=== PATIENT | female | born 1965 | race Caucasian/White ===

== ENCOUNTER 2025-03-23 08:15 | Day surgery (SDC) | payer OTHER ==
[2025-03-18 14:09] VITALS: BMI 42.0
[2025-03-23 08:31] VITALS: RESP 18
[2025-03-23] MEDS ORDERED: PROPOFOL 160 ML ONE (09:45)
[2025-03-23 10:18] VITALS: TEMP 97
[2025-03-23 10:39] VITALS: BP 130/54; PULSE 66
== END 2025-03-23 10:37 | disposition home or self-care (01) ==
LOC: FASU-ENDO 08:15
PROVIDERS: ATTEND Internal Medicine Gastroenterology
PROC: 0DBH8ZX Excision of Cecum, Via Natural or Artificial Opening Endoscopic, Diagnostic (ICD-10-PCS; principal; 2025-03-23 09:53)
DX: Z12.11 Encounter for screening for malignant neoplasm of colon (principal); D12.0 Benign neoplasm of cecum; K57.30 Diverticulosis of large intestine without perforation or abscess without bleeding
CPT/HCPCS: 88305-TC